=== PATIENT | female | born 1980 | race African-American/Black ===

== ENCOUNTER 2016-11-16 16:35 | Emergency (ER) | payer OTHER ==
[~2016-11-16] VITALS: Ht 160 cm; Wt 81.6 kg
[2016-11-16 16:41] VITALS: BP 133/94
[2016-11-16] MEDS ORDERED: Dicyclomine HCl 10mg/5ml oral soln ORAL ONE (16:45)
--- NOTE | 2016-11-16 17:18 | Emergency Room Report ---
History of Present Illness General Chief Complaint: Abdominal Pain Source: Patient Present Illness HPI 36-year-old female presents to the emergency department complaining of 6/10 in severity lower abdominal cramping with diarrhea since this a.m. Patient denies nausea or vomiting. Patient denies blood in the stools or black tarry stools. Patient reports at least 6 episodes of diarrhea she describes as loose stools. Patient denies recent travel or ill contacts.Denies recent abx use. Denies fevers or chills. Pt. reports history of diabetes, stomach ulcers, and high blood pressure. Patient denies abdominal tenderness. She reports increased flatulence. Denies dysuria, frequency, hematuria or urgency. Denies rash. Denies CP, Palpitations, LOC, AMS, dizziness, Changes in Vision, Sensation, paresthesias, or a sudden severe headache. Allergies: Coded Allergies: IBUPROFEN (Verified Allergy, Intermediate, 11/16/16) PENICILLINS (Verified Allergy, Intermediate, 11/16/16) Patient History Past Medical History: see triage record Past Surgical History: none Pertinent Family History: none Now: No Immunizations: UTD Reviewed Nursing Documentation: PMH: Agreed, PSxH: Agreed Nursing Documentation-PMH Hx Hypertension: Yes Hx Diabetes: Yes Review of Systems All Other Systems: negative except mentioned in HPI Physical Exam Vital Signs Date Time Temp Pulse Resp B/P (MAP) Pulse Ox O2 Delivery O2 Flow Rate FiO2 11/16/16 16:36 98.1 90 16 133/94 98 Room Air Sp02 EP Interpretation: reviewed, normal General Appearance: no apparent distress, alert, GCS 15, non-toxic Head: normocephalic, atraumatic Eyes: bilateral eye normal inspection, bilateral eye PERRL ENT: hearing grossly normal, normal voice Neck: full range of motion Respiratory: lungs clear, normal breath sounds, speaking full sentences Cardiovascular #1: regular rate, rhythm Gastrointestinal: normal bowel sounds - hyperactive bowelsounds in all 4 quadrants, non tender, soft, non-distended, no guarding, no rebound Rectal: deferred Genitourinary: no CVA tenderness Musculoskeletal: back normal, gait/station normal, normal range of motion Neurologic: alert, oriented x3, responsive, motor strength/tone normal, sensory intact, normal gait, speech normal Psychiatric: judgement/insight normal, memory normal, mood/affect normal Skin: normal color, no rash, warm/dry, well hydrated Lymphatic: no adenopathy Medical Decision Making PA Attestation Dr. Beltrán is my supervising Physician whom patient management has been discussed with. Diagnostic Impression: Primary Impression: Enteritis Additional Impressions: UTI (urinary tract infection) Qualified Codes: N30.01 - Acute cystitis with hematuria Dehydration, mild ER Course 36-year-old female presents to the emergency department complaining of 6/10 in severity lower abdominal cramping with diarrhea since this a.m. Patient denies nausea or vomiting. Patient denies blood in the stools or black tarry stools. Patient reports at least 6 episodes of diarrhea she describes as loose stools. Patient denies recent travel or ill contacts.Denies recent abx use. Denies fevers or chills. Pt. reports history of diabetes, stomach ulcers, and high blood pressure. Patient denies abdominal tenderness. She reports increased flatulence. Denies dysuria, frequency, hematuria or urgency. Denies rash. Denies CP, Palpitations, LOC, AMS, dizziness, Changes in Vision, Sensation, paresthesias, or a sudden severe headache. Ddx considered but are not limited to Diverticulitis, acute appy, diarrhea,UC, PUD, GE, pancreatitis, gallstone Vital signs: are WNL, pt. is afebrile H&PE are most consistent with Mild dehydration and diarrhea ORDERS: -CBC, CMP, lipase: WNL / Unremarkable - UA: Many bacteria, elevated WBC's , RBC's, elevated glucose-- consistent with UTI -Urine Hcg: Negative ED INTERVENTIONS: --- 1000NS Bolus --20mg Bentyl DISCHARGE: At this time pt. is stable for d/c to home. Will provide printed patient care instructions, and any necessary prescriptions. Care plan and follow up instructions have been discussed with the patient prior to discharge. Labs Test 11/16/16 17:10 White Blood Count 5.5 K/UL (4.8-10.8) Red Blood Count 4.57 M/UL (4.20-5.40) Hemoglobin 13.3 G/DL (12.0-16.0) Hematocrit 39.7 % (37.0-47.0) Mean Corpuscular Volume 87 FL (80-99) Mean Corpuscular Hemoglobin 29.2 PG (27.0-31.0) Mean Corpuscular Hemoglobin Concent 33.5 G/DL (32.0-36.0) Red Cell Distribution Width 12.0 % (11.6-14.8) Platelet Count 127 K/UL (150-450) Mean Platelet Volume 12.4 FL (6.5-10.1) Neutrophils (%) (Auto) 53.1 % (45.0-75.0) Lymphocytes (%) (Auto) 36.9 % (20.0-45.0) Monocytes (%) (Auto) 8.1 % (1.0-10.0) Eosinophils (%) (Auto) 0.7 % (0.0-3.0) Basophils (%) (Auto) 1.2 % (0.0-2.0) Urine Color Yellow Urine Appearance Cloudy Urine pH 5 (4.5-8.0) Urine Specific [place] 1.020 (1.005-1.035) Urine Protein 1+ (NEGATIVE) Urine Glucose (UA) 2+ (NEGATIVE) Urine Ketones 1+ (NEGATIVE) Urine Occult Blood 3+ (NEGATIVE) Urine Nitrite Negative (NEGATIVE) Urine Bilirubin Negative (NEGATIVE) Urine Urobilinogen 1 MG/DL (0.0-1.0) Urine Leukocyte Esterase 2+ (NEGATIVE) Urine RBC 10-15 /HPF (0 - 2) Urine WBC 0-2 /HPF (0 - 2) Urine Squamous Epithelial Cells Many /LPF (NONE/OCC) Urine Bacteria Many /HPF (NONE) Urine HCG, Qualitative Negative Sodium Level 138 mEQ/L (135-145) Potassium Level 3.9 mEQ/L (3.4-4.9) Chloride Level 100 mEQ/L (98-107) Carbon Dioxide Level 22 mEQ/L (20-30) Anion Gap 16 (5-15) Blood Urea Nitrogen 16 mg/dL (7-23) Creatinine 0.7 mg/dL (0.5-0.9) Estimat Glomerular Filtration Rate > 60 mL/min (>60) Glucose Level 194 mg/dL (74-106) Calcium Level 9.6 mg/dL (8.6-10.2) Total Bilirubin < 0.2 mg/dL (0.0-1.2) Aspartate Amino Transf (AST/SGOT) 12 U/L (5-40) Alanine Aminotransferase (ALT/SGPT) 9 U/L (3-33) Alkaline Phosphatase 83 U/L (35-104) Total Protein 7.2 g/dL (6.6-8.7) Albumin 4.2 g/dL (3.5-5.2) Globulin 3.0 g/dL Albumin/Globulin Ratio 1.4 (1.0-2.7) Lipase 31 U/L (< 60) Last Vital Signs Date Time Temp Pulse Resp B/P (MAP) Pulse Ox O2 Delivery O2 Flow Rate FiO2 11/16/16 16:41 98.1 16 133/94 98 Room Air 11/16/16 16:36 90 Disposition: HOME, SELF-CARE Condition: Stable Scripts Dicyclomine Hcl* (BENTYL*) 10 Mg Capsule 10 MG ORAL FOUR TIMES A DAY for 3 Days, #12 CAP Prov: Adele Bahena 11/16/16 Nitrofurantoin Monohyd/M-Cryst* (MACROBID 100 MG*) 100 Mg Capsule 100 MG ORAL EVERY 12 HOURS for 5 Days, #5 CAP Prov: Adele Bahena 11/16/16 Patient Instructions: Abdominal Pain, Adult, Urinary Tract Infection, Easy-to- Read Additional Instructions: Take medications as directed. Follow up with a Primary Care Provider in 3-5 days, even if your symptoms have resolved. --Please review list of primary care clinics, if you do not already have a primary care provider Return sooner to ED if new symptoms occur, or current symptoms become worse. - Please note that this Emergency Department Report was dictated using [employer] technology software, occasionally this can lead to erroneous entry secondary to interpretation by the dictation equipment. Adele Bahena Nov 16, 2016 17:18
[2016-11-16 17:27] LABS: BASOPHILS % (AUTO) 1.2 % (0.0-2.0); EOSINOPHILS % (AUTO) 0.7 % (0.0-3.0); LYMPHOCYTES % (AUTO) 36.9 % (20.0-45.0); MEAN CORPUSCULAR HEMOGLOBIN 29.2 PG (27.0-31.0); MEAN CORPUSCULAR HGB CONC 33.5 G/DL (32.0-36.0); MEAN CORPUSCULAR VOLUME 87 FL (80-99); MEAN PLATELET VOLUME 12.4 FL (6.5-10.1); MONOCYTES % (AUTO) 8.1 % (1.0-10.0); NEUTROPHILS % (AUTO) 53.1 % (45.0-75.0); PLATELET COUNT 127 K/UL (150-450); RED BLOOD COUNT 4.57 M/UL (4.20-5.40); WHITE BLOOD COUNT 5.5 K/UL (4.8-10.8)
[2016-11-16 17:41] LABS: APPEARANCE,URINE CLOUDY; KETONES,URINE 1+ (NEGATIVE); LEUKOCYTE ESTERASE ,URINE 2+ (NEGATIVE); NITRITE,URINE NEGATIVE (NEGATIVE); PH,URINE 5 (4.5-8.0); PROTEIN,URINE 1+ (NEGATIVE); UROBILINOGEN,URINE 1 MG/DL (0.0-1.0)
[2016-11-16 17:46] LABS: ALANINE AMINOTRANSFERASE 9 U/L (3-33); ALBUMIN/GLOBULIN RATIO 1.4 (1.0-2.7); ANION GAP 16 (5-15); ASPARTATE AMINO TRANSFERASE 12 U/L (5-40); CALCIUM 9.6 mg/dL (8.6-10.2); CARBON DIOXIDE 22 mEQ/L (20-30); CHLORIDE 100 mEQ/L (98-107); CREATININE 0.7 mg/dL (0.5-0.9); GLOMERULAR FILTRATION RATE > 60 mL/min (>60); HEMOLYSIS 4; LIPASE 31 U/L (< 60); POTASSIUM 3.9 mEQ/L (3.4-4.9); SODIUM 138 mEQ/L (135-145); TOTAL PROTEIN 7.2 g/dL (6.6-8.7)
[2016-11-16 17:55] LABS: BACTERIA,URINE MANY /HPF; SQUAMOUS EPITHELIAL CELL,UR MANY /LPF (NONE/OCC); WBC,URINE 0-2 /HPF (0 - 2)
[2016-11-16] MEDS ORDERED: BENTYL10 MG ORAL (18:07)
[2016-11-16] MEDS ORDERED: NITROFURANTOIN100 M2 ORAL (18:07)
[2016-11-16 18:44] VITALS: BP 130/84
[2016-11-16 18:45] VITALS: BP 130/84
== END 2016-11-16 18:45 | disposition home or self-care (01) ==
LOC: EDBD 16:35 → EMR 17:19
DX: K52.9 Noninfective gastroenteritis and colitis, unspecified (principal); N30.01 Acute cystitis with hematuria; E86.0 Dehydration; I10 Essential (primary) hypertension; E11.9 Type 2 diabetes mellitus without complications; Z88.6 Allergy status to analgesic agent; Z88.0 Allergy status to penicillin
CPT/HCPCS: 36415; 80053; 81003; 81025; 83690; 85025; 87086; 87181; 96360; 99284; J7040

== ENCOUNTER 2019-01-06 16:17 | Emergency (ER) | payer OTHER ==
[~2019-01-06] VITALS: Ht 160 cm; Wt 73.5 kg
[~2019-01-06 16:17] MED LIST: BENTYL10 MG ORAL; NITROFURANTOIN100 M2 ORAL
[2019-01-06 16:29] VITALS: BP 137/89
--- NOTE | 2019-01-06 16:29 | NUR ---
ED Nurse Note: PT BROUGHT IN BY AMBULANCE PICKED UP FROM [facility] DUE TO NOT FEELING WELL AND ELEVATED BLOOD SUGAR OF 212. PT C/O HEADACHE AND URINARY FREQUENCY BUT DENIES N/V. AAO X4, FOLLOWS COMMANDS.
[2019-01-06] MEDS ORDERED: Acetaminophen 500mg (ES) tab ORAL ONE (17:00)
--- NOTE | 2019-01-06 17:19 | NUR ---
ED Nurse Note: COLLECTED BLOOD/URINE SPECIMEN
[2019-01-06 17:40] LABS: ANION GAP 11 mmol/L (5-15); BLOOD UREA NITROGEN 14 mg/dL (7-18); CALCIUM 9.5 MG/DL (8.5-10.1); CARBON DIOXIDE 25 MMOL/L (21-32); CHLORIDE 105 MMOL/L (98-107); CREATININE 0.9 MG/DL (0.55-1.30); POTASSIUM 4.3 MMOL/L (3.5-5.1); SODIUM 141 MMOL/L (136-145)
[2019-01-06 17:42] LABS: APPEARANCE,URINE CLEAR; BILIRUBIN, URINE NEGATIVE (NEGATIVE); EOSINOPHILS % (AUTO) 0.7 % (0.0-3.0); GLUCOSE, URINE (UA) 3+ (NEGATIVE); HEMATOCRIT 40.8 % (37.0-47.0); HEMOGLOBIN 13.8 G/DL (12.0-16.0); KETONES,URINE 1+ (NEGATIVE); LEUKOCYTE ESTERASE ,URINE 3+ (NEGATIVE); LYMPHOCYTES % (AUTO) 35.6 % (20.0-45.0); MEAN CORPUSCULAR VOLUME 86 FL (80-99); MONOCYTES % (AUTO) 7.6 % (1.0-10.0); NEUTROPHILS % (AUTO) 55.1 % (45.0-75.0); NITRITE,URINE NEGATIVE (NEGATIVE); PH,URINE 5 (4.5-8.0); PLATELET COUNT 166 K/UL (150-450); PROTEIN,URINE 2+ (NEGATIVE); RED BLOOD COUNT 4.74 M/UL (4.20-5.40); RED CELL DISTRIBUTION WIDTH 11.4 % (11.6-14.8); UROBILINOGEN,URINE NORMAL MG/DL (0.0-1.0)
[2019-01-06 17:45] LABS: ALANINE AMINOTRANSFERASE 18 U/L (12-78); ALBUMIN 4.1 G/DL (3.4-5.0); ALBUMIN/GLOBULIN RATIO 1.1 (1.0-2.7); ALKALINE PHOSPHATASE 89 U/L (46-116); ASPARTATE AMINO TRANSFERASE 8 U/L (15-37); BILIRUBIN,TOTAL 0.3 MG/DL (0.2-1.0); COLOR,URINE YELLOW
[2019-01-06 18:35] VITALS: BP 128/76
--- NOTE | 2019-01-06 18:35 | NUR ---
ER DISCHARGE NOTE: Patient is cleared to be discharged per ERMD, pt is aox4, on room air, with stable vital signs. pt was given dc instructions, pt was able to verbalize understanding, pt id band and iv site removed without complications. pt is able to ambulate with steady gait. pt took all belongings.
--- NOTE | 2019-01-08 07:04 | Emergency Room Report ---
History of Present Illness General Chief Complaint: General Complaint Source: Patient Present Illness HPI 38-year-old female presents ED for evaluation. Brought in by EMS for weakness and elevated blood sugar. Accu-Chek in the 200s per EMS. Patient came from [place] [facility] [employer] [facility] today. Her EMS they state it was hot outside and many patients presented with similar presentations to multiple hospitals. Patient states that she has some generalized body aches. History of arthritis. Pain is throbbing, 7 out of 10, nonradiating. States that her sugar is high. States she is compliant with her medications. Denies fevers or chills. Denies chest pain or shortness of breath. Denies abdominal pain. No other aggravating relieving factors. Denies any other associated symptoms Allergies: Coded Allergies: IBUPROFEN (Verified Allergy, Intermediate, 11/16/16) PENICILLINS (Verified Allergy, Intermediate, 11/16/16) Patient History Past Medical History: DM, HTN Past Surgical History: none Pertinent Family History: none Social History: Denies: smoking, alcohol use, drug use Now: No Immunizations: UTD Reviewed Nursing Documentation: PMH: Agreed; PSxH: Agreed Nursing Documentation-PMH Past Medical History: No History, Except For Hx Hypertension: Yes Hx Diabetes: Yes Review of Systems All Other Systems: negative except mentioned in HPI Physical Exam Vital Signs Date Time Temp Pulse Resp B/P (MAP) Pulse Ox O2 Delivery O2 Flow Rate FiO2 01/06/ 16:19 98.2 93 18 131/86 (101) 99 Room Air Sp02 EP Interpretation: reviewed, normal General Appearance: no apparent distress, alert, GCS 15, non-toxic Head: normocephalic, atraumatic Eyes: bilateral eye normal inspection, bilateral eye PERRL ENT: hearing grossly normal, normal pharynx, no angioedema, normal voice Neck: full range of motion, supple/symm/no masses Respiratory: chest non-tender, lungs clear, normal breath sounds, speaking full sentences Cardiovascular #1: regular rate, rhythm, no edema Cardiovascular #2: 2+ carotid (R), 2+ carotid (L), 2+ radial (R), 2+ radial (L) , 2+ dorsalis pedis (R), 2+ dorsalis pedis (L) Gastrointestinal: normal bowel sounds, non tender, soft, non-distended, no guarding, no rebound Rectal: deferred Genitourinary: normal inspection, no CVA tenderness Musculoskeletal: back normal, gait/station normal, normal range of motion, non- tender Neurologic: alert, oriented x3, responsive, motor strength/tone normal, sensory intact, speech normal Psychiatric: judgement/insight normal, memory normal, mood/affect normal, no suicidal/homicidal ideation Reflexes: 3+ bicep (R), 3+ bicep (L), 3+ tricep (R), 3+ tricep (L), 3+ knee (R) , 3+ knee (L) Lymphatic: no adenopathy Medical Decision Making Diagnostic Impression: Primary Impression: Hyperglycemia ER Course Hospital Course 57-year-old male presenting to ED with elevated BS. not compliant with his meds Differential diagnoses include: ETOH/drug ingestion, sepsis, DKA Clinical course Patient placed on stretcher. On library monitor. After initial history and physical I ordered labs, IV fluids, urine Labs-glucose 192, no anion gap, bicarbonate normal, electrolytes ok. no leukocytosis. acetone negative On reassessment patient states she feels better. Accu-Chek improved. Will discharge to home. Safe for discharge for close outpatient follow-up. States she has a PMD. States she has all her medications at home i. I feel this is a highly complex case requiring extensive working including EKG/Rhythm strip, Xray/CT/US, Blood/urine lab work, repeat exams while in ED, and administration of strong opiates/narcotics for pain control, admission to hospital or close patient follow up. diagnosis - hyperglycemia Stable and discharged to home. Followup with PMD. Return to ED if symptoms recur or worsen Labs Test 01/06/19 17:15 White Blood Count 6.0 K/UL (4.8-10.8) Red Blood Count 4.74 M/UL (4.20-5.40) Hemoglobin 13.8 G/DL (12.0-16.0) Hematocrit 40.8 % (37.0-47.0) Mean Corpuscular Volume 86 FL (80-99) Mean Corpuscular Hemoglobin 29.0 PG (27.0-31.0) Mean Corpuscular Hemoglobin Concent 33.7 G/DL (32.0-36.0) Red Cell Distribution Width 11.4 % (11.6-14.8) Platelet Count 166 K/UL (150-450) Mean Platelet Volume 9.6 FL (6.5-10.1) Neutrophils (%) (Auto) 55.1 % (45.0-75.0) Lymphocytes (%) (Auto) 35.6 % (20.0-45.0) Monocytes (%) (Auto) 7.6 % (1.0-10.0) Eosinophils (%) (Auto) 0.7 % (0.0-3.0) Basophils (%) (Auto) 1.0 % (0.0-2.0) Urine Color Yellow Urine Appearance Clear Urine pH 5 (4.5-8.0) Urine Specific [place] 1.025 (1.005-1.035) Urine Protein 2+ (NEGATIVE) Urine Glucose (UA) 3+ (NEGATIVE) Urine Ketones 1+ (NEGATIVE) Urine Blood 1+ (NEGATIVE) Urine Nitrite Negative (NEGATIVE) Urine Bilirubin Negative (NEGATIVE) Urine Urobilinogen Normal MG/DL (0.0-1.0) Urine Leukocyte Esterase 3+ (NEGATIVE) Urine RBC 2-4 /HPF (0 - 2) Urine WBC 5-10 /HPF (0 - 2) Urine Squamous Epithelial Cells Few /LPF (NONE/OCC) Urine Bacteria Many /HPF (NONE) Sodium Level 141 MMOL/L (136-145) Potassium Level 4.3 MMOL/L (3.5-5.1) Chloride Level 105 MMOL/L (98-107) Carbon Dioxide Level 25 MMOL/L (21-32) Anion Gap 11 mmol/L (5-15) Blood Urea Nitrogen 14 mg/dL (7-18) Creatinine 0.9 MG/DL (0.55-1.30) Estimat Glomerular Filtration Rate > 60 mL/min (>60) Glucose Level 192 MG/DL (74-106) Calcium Level 9.5 MG/DL (8.5-10.1) Magnesium Level 2.0 MG/DL (1.8-2.4) Total Bilirubin 0.3 MG/DL (0.2-1.0) Aspartate Amino Transf (AST/SGOT) 8 U/L (15-37) Alanine Aminotransferase (ALT/SGPT) 18 U/L (12-78) Alkaline Phosphatase 89 U/L (46-116) Total Protein 7.8 G/DL (6.4-8.2) Albumin 4.1 G/DL (3.4-5.0) Globulin 3.7 g/dL Albumin/Globulin Ratio 1.1 (1.0-2.7) Acetone Level Negative (NEGATIVE) Last Vital Signs Date Time Temp Pulse Resp B/P (MAP) Pulse Ox O2 Delivery O2 Flow Rate FiO2 01/06/19 18:35 98.3 74 18 128/76 100 Room Air Status: improved Disposition: HOME, SELF-CARE Condition: Stable Patient Instructions: Hyperglycemia, [id number] Andrea Flores MD Jan 08, 2019 07:04
== END 2019-01-06 18:35 | disposition home or self-care (01) ==
LOC: EDBD 16:17 → EMR 17:00
DX: E11.65 Type 2 diabetes mellitus with hyperglycemia (principal); I10 Essential (primary) hypertension; Z88.0 Allergy status to penicillin; Z88.8 Allergy status to other drugs, medicaments and biological substances; Z91.14 Patient's other noncompliance with medication regimen
CPT/HCPCS: 36415; 80053; 81003; 82009; 83735; 85025; 87086; 96360; Z7502; 99284; J7030